=== PATIENT | male | born 1980 | race Two or more races ===

== ENCOUNTER 2025-09-25 15:23 | Emergency (ER) | payer MEDICAID, OTHER ==
[~2025-09-25] VITALS: Ht 177.8 cm; Wt 75.2 kg
[2025-09-25 16:13] LABS: Hematocrit 42.5 % (41.0-53.0); Hemoglobin 14.9 g/dL (13.5-17.5); Mean Corpuscular Hemoglobin 33.3 pg (28.0-32.0); Mean Corpuscular Volume 94.6 fL (80.0-100.0); Nucleated Red Blood Cells % 0.1 %
[2025-09-25 16:16] LABS: Chloride 100 mmol/L (98-107); Potassium 3.8 mmol/L (3.5-5.1); Sodium 143 mmol/L (136-145)
[2025-09-25 16:17] LABS: Anion Gap 15 (5-15); Carbon Dioxide 28 mmol/L (20-31)
[2025-09-25 16:18] LABS: Calcium 10.0 mg/dL (8.7-10.4)
[2025-09-25 16:22] LABS: Glucose 93 mg/dL (74-106)
[2025-09-25 16:23] LABS: BUN/Creatinine Ratio 17.1 (10.0-20.0); Blood Urea Nitrogen 13 mg/dL (9-23)
--- NOTE | 2025-09-25 16:31 | ED.PDOC ---
HPI Comments 44 y.o male with PMHx of pancreatitis, presents to the ED for a chief complaint of substernal chest pain radiating to his back associated with nausea, that started last night. Patient reports pain is constant, sharp, and has no alleviating factors. Patient mentions last pancreatitis flare up was one year ago. He mentions a couple days ago had some epigastric pain and presents with tenderness on palpation which radiates up to his chest. Patient admits to heavy ETOH use, drinks about 5-10 alcoholic drinks per day and more when stressed out which he has been lately. He states last pancreatitis dx was one year ago. He also admits to eating spicy and greasy food the past couple of days. He denies diarrhea, fever, chills, vomiting, or SOB. He denies any other medical history. Chief Complaint: Chest Pain Time Seen by MD: 16:00 Reviewed Notes: Nurses Notes, Medications, Allergies Allergies: Coded Allergies: Cephalexin (Verified Allergy, Unknown, 09/25/25) Information Source: Patient Mode of Arrival: Ambulatory Severity: Moderate Timing: Hours Duration: Since onset Location: Substernal Radiation: Abdomen Quality: Sharp Onset: At Rest Cardiac Risk Factors: None PE Risk Factors: None History of: None Modifying Factors: Nothing Associated Signs and Symptoms: Abdominal Pain, N/V Past Medical History Past Medical History (Other): pancreatitis Surgical History: Denies all surgeries Family History Family History: Reviewed,noncontributory to illness Social History Smoker: Non-Smoker Alcohol: Heavy Drugs: Denies Drug Use Lives In: Home Constitutional: denies: chills, diaphoresis, fatigue, fever, malaise, sweats, weakness, others EENTM: denies: blurred vision, double vision, ear bleeding, ear discharge, ear drainage, ear pain, ear ringing, eye pain, eye redness, hearing loss, mouth pain, mouth swelling, nasal discharge, nose bleeding, nose congestion, nose pain, photophobia, tearing, throat pain, throat swelling, voice changes, others Respiratory: denies: cough, hemoptysis, orthopnea, SOB at rest, shortness of breath, SOB with excertion, stridor, wheezing, others Cardiovascular: reports: chest pain; denies: dizzy spells, diaphoresis, Dyspnea on exertion, edema, irregular heart beat, left arm pain, lightheadedness, palpitations, PND, syncope, others Gastrointestinal: reports: abdominal pain, nausea; denies: abdomen distended, blood streaked bowels, constipated, diarrhea, dysphagia, difficulty swallowing, hematemesis, melena, poor appetite, poor fluid intake, rectal bleeding, rectal pain, vomiting, others Genitourinary: denies: burning, dysuria, flank pain, frequency, hematuria, incontinence, penile discharge, penile sore, pain, testicle pain, testicle swelling, urgency, others Neurological: denies: dizziness, fainting, headache, left sided numbness, left sided weakness, numbness, paresthesia, pre-existing deficit, right sided numbness, right sided weakness, seizure, speech problems, tingling, tremors, weakness, others Musculoskeletal: denies: back pain, gout, joint pain, joint swelling, muscle pain, muscle stiffness, neck pain, others Integumetry: denies: bruises, change in color, change in hair/nails, dryness, laceration, lesions, lumps, rash, wounds, others Allergic/Immunocompromised: denies: Difficulty Healing, Frequent Infections, Hives, Itching, others Hematologic/Lymphatic: denies: anemia, blood clots, easy bleeding, easy bruising, swollen glands, others Endocrine: denies: excessive hunger, excessive sweating, excessive thirst, excessive urination, flushing, intolerance to cold, intolerance to heat, unexplained weight gain, unexplained weight loss, others Psychiatric: denies: anxiety, bipolar disorder, depression, hopeless, panic disorder, schizophrenia, sleepless, suicidal, others All Other Systems: Reviewed and Negative Physical Exam General Appearance: No Apparent Distress, Normal HEENT: Normal ENT Inspection, Pharynx Normal, TMs Normal Neck: Full Range of Motion, Non-Tender, Normal, Normal Inspection Respiratory: Chest Non-Tender, Lungs Clear, No Accessory Muscle Use, No Resp iratory Distress, Normal Breath Sounds Cardiovascular: No Edema, No JVD, No Murmur, No Gallop, Normal Peripheral Pulses, Regular Rate/Rhythm Breast Exam: Deferred Gastrointestinal: Epigastric, No Organomegaly, No Pulsatile Mass, Tenderness Genitalia: Deferred Pelvic: Deferred Rectal: Deferred Extremities: No calf tenderness, Normal capillary refill, Normal inspection, Normal range of motion, Non-tender, No pedal edema Musculoskeletal : Apperance: Normal Neurologic: Alert, president [place] II-XII nml as Tested, No Motor Deficits, Normal Affect, Normal Mood, No Sensory Deficits Cerebellar Function: Normal Reflexes: Normal Skin: Dry, Normal Color, Warm Lymphatic: No Adenopathy EKG EKG : Pulse Rate (adult): 71 Cardiac Rhythm: NSR Was a procedure done? Was a procedure done?: No CP Differential Dx Differential Diagnosis: N/A Differential Diagnosis: Angina, Chest Wall Pain, Cholelithiasis, Costochondritis, Esophageal reflux/spasm, Gastritis, Myocardial Infarction, Pe ricarditis X-Ray, Labs, Meds, VS Vital Signs Date Time Temp Pulse Resp B/P (MAP) Pulse Ox O2 Delivery O2 Flow Rate FiO2 09/25/25 16:31 71 09/25/25 16:25 68 09/25/25 15:32 71 09/25/25 15:29 98.2 86 20 136/83 97 98.2 Lab Test 09/25/25 16:43 09/25/25 16:01 09/25/25 15:38 Range/Units Troponin I High Sensitivity < 3 L < 3 L </=54 ng/L Urine Color Pending Urine Clarity Pending Urine pH Pending Urine Specific David Pending Urine Protein Pending Urine Ketones Pending Urine Blood Pending Urine Nitrite Pending Urine Bilirubin Pending Urine Urobilinogen Pending Urine Leukocyte Esterase Pending Urine RBC Pending Urine Microscopic WBC Pending Urine Squamous Epithelial Cells Pending Urine Bacteria Pending Urine Glucose Pending White Blood Count 5.0 4.4-10.8 10^3/uL Red Blood Count 4.49 L 4.5-5.90 10^6/uL Hemoglobin 14.9 13.5-17.5 g/dL Hematocrit 42.5 41.0-53.0 % Mean Corpuscular Volume 94.6 80.0-100.0 fL Mean Corpuscular Hemoglobin 33.3 H 28.0-32.0 pg Mean Corpuscular Hemoglobin Concent 35.2 32.0-36.0 g/dL Red Cell Distribution Width 12.6 11.8-14.3 % Platelet Count 100 L 140-450 10^3/uL Mean Platelet Volume 6.6 L 6.9-10.8 fL Neutrophils (%) (Auto) 50.7 37.0-80.0 % Lymphocytes (%) (Auto) 37.3 10.0-50.0 % Monocytes (%) (Auto) 9.6 0.0-12.0 % Eosinophils (%) (Auto) 1.4 0.0-7.0 % Basophils (%) (Auto) 1.0 0.0-2.0 % Neutrophils # (Auto) 2.5 1.6-8.6 10 ^3/uL Lymphocytes # (Auto) 1.9 0.4-5.4 10 ^3/uL Monocytes # (Auto) 0.5 0-1.3 10 ^3/uL Eosinophils # (Auto) 0.1 0-0.8 10 ^3/uL Basophils # (Auto) 0 0-0.2 10 ^3/uL Nucleated Red Blood Cells 0.1 % Sodium Level 143 136-145 mmol/L Potassium Level 3.8 3.5-5.1 mmol/L Chloride Level 100 98-107 mmol/L Carbon Dioxide Level 28 20-31 mmol/L Anion Gap 15 5-15 Blood Urea Nitrogen 13 9-23 mg/dL Creatinine 0.76 0.700-1.30 mg/dL Glomerular Filtration Rate Calc 115 >90 mL/min BUN/Creatinine Ratio 17.1 10.0-20.0 Serum Glucose 93 74-106 mg/dL Calcium Level 10.0 8.7-10.4 mg/dL Lipase 1060 H 12-53 U/L Current Medications Medications (Trade) Dose Ordered Sig/Angel Luis Route Start Time Stop Time Status Last Admin Ketorolac Tromethamine (Toradol Injection) 30 mg ONCE ONCE IM 09/25/25 16:15 09/25/25 16:16 DC 09/25/25 16:32 X-Ray, Labs, Meds, VS Comment Patient has ear retractable abdominal pain and acute pancreatitis Patient will be admitted for observation Patient be started on 1 L bolus and given morphine and Zofran for his pain control Patient hemodynamically stable Time of 1ST Reevaluation: 16:30 Reevaluation 1ST: Unchanged Patient Education/Counseling: Diagnosis, Treatment, Prognosis Family Education/Counseling: No Family Present SEPSIS Sepsis Screen Date sepsis recognized/suspect: Sep 25, 2025 Time Sepsis recognized/suspect: 1528 Recent Procedure: No On Antibiotic Therapy: No Respiratory Rate >20: No Heart Rate >90: No Temp<36 C (96.8 F) or >38.3 C: No SBP <90 or MAP <65 mmHG: No New Acute Mental Status Change: No Is the patient on CPAP, BIPAP,: No Physician Orders Chest Portable (09/25/25 15:31) Urinalysis (09/25/25 15:31) Electrocardigram (09/25/25 15:31) Electrocardigram (09/25/25 16:31) Ct Ab Pel Wo Con-No Oral Or Iv (09/25/25 16:02) NS (09/25/25 18:15) Ondansetron Hcl (Zofran) (09/25/25 18:15) Morphine Sulfate Injection (09/25/25 18:15) Vital Signs Date Time Temp Pulse Resp B/P (MAP) Pulse Ox O2 Delivery O2 Flow Rate FiO2 09/25/25 16:31 71 09/25/25 16:25 68 09/25/25 15:32 71 09/25/25 15:29 98.2 86 20 136/83 97 98.2 Laboratory Tests Test 09/25/25 15:38 White Blood Count 5.0 10^3/uL (4.4-10.8) Medications Medications Dose Ordered Sig/Angel Luis Route Start Time Stop Time Status Last Admin Dose Admin Ketorolac Tromethamine 30 mg ONCE ONCE IM 09/25/25 16:15 09/25/25 16:16 DC 09/25/25 16:32 Departure 1 Departure Time of Disposition: 18:16 Impression: Primary Impression: Abdominal pain Qualified Codes: R10.13 - Epigastric pain Additional Impression: Pancreatitis Disposition: 09 ADMITTED INPATIENT Condition: Stable Critical Care Note Critical Care Time?: No Stability Stability form required: No Heart Score Heart Score: Heart Score Response (Comments) Value History Slightly Suspicious 0 EKG Normal 0 Age <45 0 Risk Factors No known risk factors 0 Troponin Normal limit 0 Total 0 I personally scribed for CLAYTON REILLY ([facility]) on 09/25/25 at 16:31. Electronically submitted by Wendi Gómez ([facility]). CLAYTON REILLY Sep 25, 2025 16:31
[2025-09-25] MEDS: KETOROLAC TROMETH 30 MG/ML 1ML VIAL IM ONE (16:32)
--- NOTE | 2025-09-25 16:40 | DVH ---
EXAM: XY CHEST PORTABLE HISTORY: CP COMPARISON: None TECHNIQUE: Portable upright AP view of the chest was performed. FINDINGS: No pneumothorax, consolidative infiltrates, or pulmonary edema. The heart is not enlarged. IMPRESSION: No acute intrathoracic process.
--- NOTE | 2025-09-25 17:23 | DVH ---
CLINICAL HISTORY: abd pain TECHNIQUE: CT of the abdomen and pelvis was performed without IV contrast. This exam was performed according to our departmental dose optimization program. Up-to-date CT equipment and radiation dose reduction techniques are utilized as appropriate. CTDI 10 DLP 655 COMPARISON: None FINDINGS: Abdomen/Pelvis: The spleen, pancreas, adrenal glands, kidneys, gallbladder, bladder, and prostate gland are grossly unremarkable. There is diffuse hepatic steatosis. The abdominal aorta is normal in course and caliber. There are no significant atherosclerotic calcifications. There is no free intraperitoneal air or fluid. There is no enlarged abdominal pelvic lymph node. There is no bowel wall thickening or dilatation. The appendix is normal. Other: The imaged lower thorax is unremarkable. No acute osseous abnormality is evident. Impression: No acute noncontrast CT abnormality in the abdomen / pelvis. Diffuse hepatic steatosis.
[2025-09-25 18:41] LABS: Urine Protein, UAD Negative (Negative)
[2025-09-25 19:16] VITALS: PULSE 72; RESP 19; TEMP 98.2; O2SAT 98
[2025-09-25] MEDS: ONDANSETRON HCL 4 MG/2 ML VIAL IV ONE (19:16)
[2025-09-25] MEDS: SODIUM CHLORIDE 0.9% 1,000 ML IV ONE (19:17)
[2025-09-25] MEDS: MORPHINE SULFATE 4 MG/ML SYR/VIAL IV ONE (19:17)
[2025-09-25 20:31] VITALS: BP 117/81; PULSE 69; RESP 17; O2SAT 98
[2025-09-25] MEDS ORDERED: HYDROcodone-ACET 10/325MG TAB PO ONE (22:15)
--- NOTE | 2025-09-26 07:04 | ECG ---
[facility] Test Date: 2025-09-25 Test Time: 15:32:26 Pat Name: CASH DEY Department: Room: Gender: M Care Nurse Rn: WILLIAN : 1980 Requested By: SHER MARIE Order Number: [id number] Reading MD: Lyle Ba Measurements Intervals [place] Rate: 71 P: 44 [place]: 156 QRS: 61 QRSD: 95 T: -2 QT: 382 QTc: 416 Interpretive Statements Sinus rhythm Electronically Signed On 09-28-2025 10:56:10 PST by Lyle Ba Please click the below link to view image of tracing.
--- NOTE | 2025-09-26 07:05 | ECG ---
[facility] Test Date: 2025-09-25 Test Time: 16:25:11 Pat Name: CASH DEY Department: Room: Gender: M Banquet Bartender: VAISHNAVI : 1980 Requested By: SHER MARIE Order Number: [id number] Reading MD: Lyle Ba Measurements Intervals [place] Rate: 68 P: 41 [place]: 156 QRS: 67 QRSD: 94 T: 3 QT: 380 QTc: 405 Interpretive Statements Sinus rhythm Electronically Signed On 09-28-2025 10:56:23 PST by Lyle Ba Please click the below link to view image of tracing.
== END 2025-09-25 22:24 | disposition left against medical advice (07) ==
LOC: ER 15:26
DX: K85.90 Acute pancreatitis without necrosis or infection, unspecified (principal); Z87.19 Personal history of other diseases of the digestive system; Z88.1 Allergy status to other antibiotic agents
CPT/HCPCS: 36415; 71045; 74176; 80048; 81001; 83690; 84484; 85025; 93005; 96361; 96372; 96374; 96375; 99285; J1885; J2270; J2405; J7030